=== PATIENT | female | born 1960 | race Caucasian/White ===

== ENCOUNTER → 2016-09-10 | Outpatient (CLI) | payer BC, OTHER ==
--- NOTE | 2016-09-10 15:07 | MAMMOGRAPHY REPORT ---
BILATERAL DIGITAL SCREENING MAMMOGRAM TOMOSYNTHESIS WITH CAD: 09/10/2016 CLINICAL HISTORY: Routine screening. Patient has no complaints. TECHNIQUE: Breast tomosynthesis in addition to standard 2D mammography was performed. Current study was also evaluated with a Computer Aided Detection (CAD) system. COMPARISON: Comparison is made to exams dated: 09/05/2015 mammogram, 09/03/2014 mammogram, 06/15/2013 m ammogram, 12/14/2012 mammogram, 06/15/2012 ultrasound, and 06/15/2012 mammogram - [facility] enter. BREAST COMPOSITION: There are scattered areas of fibroglandular density in both breasts. FINDINGS: No suspicious masses, calcifications, or areas of architectural distortion are noted in e ither breast. There has been no significant interval change compared to prior exams. IMPRESSION: ACR BI-RADS CATEGORY 1: NEGATIVE There is no mammographic evidence of malignancy. A 1 year screening mammogram is recommended. The p atient will receive written notification of the results. Approximately 10% of breast cancers are not detected with mammography. A negative mammographic repor t should not delay biopsy if a clinically suggestive mass is present. Jill Dawkins M.D. ah/:09/10/2016 12:40:36 Traffic Signal Supervisor Maintenance: Jenise LIVINGSTON(Martha)(M), [facility] letter sent: Normal 1/2 BI-RADS Code: ACR BI-RADS Category 1: Negative
== END | disposition home or self-care (01) ==
LOC: C.MAMM 08:38
PROVIDERS: ATTEND Obstetrics & Gynecology
DX: Z12.31 Encounter for screening mammogram for malignant neoplasm of breast (principal)

== ENCOUNTER → 2017-06-14 | Outpatient (CLI) | payer BC, OTHER ==
--- NOTE | 2017-06-14 09:10 | DIAGNOSTIC IMAGING REPORT ---
L WRIST MIN 3 VIEWS ROUTINE CLINICAL HISTORY: LEFT ELBOW LEFT WRIST PAIN pain COMPARISON: None. DISCUSSION: The bones and joint spaces appear intact. There is no evidence of fracture, dislocation or bony disease. There is no evidence for soft tissue swelling. IMPRESSION: Negative study. The above report was generated using voice recognition software. It may contain grammatical, syntax or spelling errors. Electronically signed by: Ronan Burkett M.D. 06/14/2017 9:09 AM Dictated Date/Time: 06/14/2017 9:08 AM
--- NOTE | 2017-06-14 09:11 | DIAGNOSTIC IMAGING REPORT ---
L ELBOW MIN 3 VIEWS CLINICAL HISTORY: LEFT ELBOW LEFT WRIST PAIN trauma. Pain. COMPARISON: None. DISCUSSION: Slightly impacted fracture radial neck. No evidence dislocation. All remaining osseous structures are unremarkable. Small joint effusion. There is no evidence for soft tissue swelling. IMPRESSION: Slightly impacted fracture radial neck. The above report was generated using voice recognition software. It may contain grammatical, syntax or spelling errors. Electronically signed by: Ronan Burkett M.D. 06/14/2017 9:10 AM Dictated Date/Time: 06/14/2017 9:09 AM
== END | disposition home or self-care (01) ==
LOC: C.RDSM 14:13
PROVIDERS: ATTEND Internal Medicine
DX: S52.182A Other fracture of upper end of left radius, initial encounter for closed fracture (principal); X58.XXXA Exposure to other specified factors, initial encounter

== ENCOUNTER → 2017-07-20 | Outpatient (CLI) | payer OTHER | END | disposition home or self-care (01) | LOC: C.PAPS 12:23 | PROVIDERS: ATTEND Obstetrics & Gynecology | DX: Z12.4 Encounter for screening for malignant neoplasm of cervix (principal) ==

== ENCOUNTER → 2017-09-13 | Outpatient (CLI) | payer OTHER ==
--- NOTE | 2017-09-14 07:40 | MAMMOGRAPHY REPORT ---
BILATERAL DIGITAL SCREENING MAMMOGRAM TOMOSYNTHESIS WITH CAD: 09/13/2017 CLINICAL HISTORY: Routine screening. Patient has no complaints. TECHNIQUE: Breast tomosynthesis in addition to standard 2D mammography was performed. Current study was also evaluated with a Computer Aided Detection (CAD) system. COMPARISON: Comparison is made to exams dated: 09/10/2016 mammogram, 09/05/2015 mammogram, 09/03/2014 ma mmogram, 06/15/2013 mammogram, 04/25/2009 mammogram, and 04/28/2010 mammogram - [facility] enter. BREAST COMPOSITION: There are scattered areas of fibroglandular density in both breasts. FINDINGS: No suspicious mass, architectural distortion or cluster of microcalcifications is seen. Th ere are minimal vascular calcifications in the breasts. Stable asymmetries in the lateral right vish st and slightly medial left breast. IMPRESSION: ACR BI-RADS CATEGORY 1: NEGATIVE There is no mammographic evidence of malignancy. A 1 year screening mammogram is recommended. The pa tient will receive written notification of the results. Approximately 10% of breast cancers are not detected with mammography. A negative mammographic report should not delay biopsy if a clinically suggestive mass is present. Randa Pina M.D. ay/:09/13/2017 09:07:49 Lace Winder: Jenise LLANES)(Jenelle), [facility] letter sent: Normal 1/2 BI-RADS Code: ACR BI-RADS Category 1: Negative
== END | disposition home or self-care (01) ==
LOC: C.MAMM 08:39
PROVIDERS: ATTEND Obstetrics & Gynecology
DX: Z12.31 Encounter for screening mammogram for malignant neoplasm of breast (principal)